=== PATIENT | female | born 1990 | race Caucasian/White ===

== ENCOUNTER 2017-05-24 17:35 | Emergency (ER) | payer BC ==
[~2017-05-24] VITALS: Ht 165.1 cm; Wt 77.1 kg
--- NOTE | ~2017-05-24 | CT4 ---
[facility] A Service of [facility] RADIOLOGY TEXT RESULTS PATIENT: ALEXIA MONTES LOCATION: SED : [birth year] UNIT #: [id number] AGE: [address]: RADHA MARRERO PA-C SEX: F ORDER DR: [id number] [address] [id number] MR#: [id number] Acc #: [id number] NAME: ALEXIA MONTES. : 1990 SEX: F STUDY DATE/TIME: 05/24/2017 18:42 UNIT: SED ROOM: STUDY DESCRIPTION: CT Abd and Pelv Wo Cont Attending Physician: Radha Marrero Pa-C Ordering Physician: Radha Marrero Pa-C Primary Care Physician: Tony Arenas M.D. MEDICAL IMAGING REPORT This report is preliminary unless electronic signature is present. EXAM CT abdomen and pelvis, noncontrast, kidney stone protocol, 05/24/2017 HISTORY 26-year-old female in the ED complaining of 2-week history of flank pain. Nausea. History of kidney stones. TECHNIQUE CT examination of the abdomen and pelvis without oral or IV contrast using kidney stone protocol. This CT examination was performed with one or more of the following radiation dose reduction techniques: automatic exposure control, adjustment of mA and/or kV according to patient size, and iterative reconstruction. FINDINGS ABDOMEN: 2 mm nonobstructing calculus in the lower pole left kidney is unchanged since 01/27/2015. Both kidneys, both ureters and the urinary bladder are otherwise negative. No evidence of urinary obstruction. Cholecystectomy. No bile duct dilatation. Liver, pancreas and spleen are normal in size and appearance without contrast. Small bowel and colon are normal in caliber and appearance, as imaged. Normal appendix. PELVIS: Uterus, ovaries, urinary bladder and rectum are within normal limits. No inguinal hernia. Limited lung base images show no active disease in the lower chest. IMPRESSION 1. No acute abnormality within the abdomen or pelvis. 2. 2 mm nonobstructing calculus in the lower pole left kidney, unchanged [facility] A Service of [facility] RADIOLOGY TEXT RESULTS PATIENT: ALEXIA MONTES LOCATION: [place] : [birth year] UNIT #: [id number] AGE: [address]: RADHA MARRERO PA-C SEX: F ORDER DR: since 01/27/2015. No evidence of urinary obstruction. 3. Cholecystectomy. 4. Normal appendix. Dictated by... Aneudy Singh M.D. THIS IS AN ELECTRONICALLY VERIFIED REPORT Aneudy Singh M.D. at 05/25/2017 9:47 AM JORGE/zuleima TD: 05/25/2017 06:04 JOB #: [id number] MEDICAL IMAGING REPORT Page 1 of 1
[~2017-05-24 17:35] MED LIST: BENADRYL25 M1 PO; BENADRYL25 M3; PAXIL40 MG PO; PREDNISONE PO; TAGAMET300 M1 PO
[2017-05-24 18:14] LABS: URINE SOURCE CLEAN CATCH
[2017-05-24 18:19] LABS: URINE APPEARANCE CLEAR; URINE BILIRUBIN NEG (NEG); URINE BLOOD 1+ (NEG); URINE COLOR YELLOW; URINE GLUCOSE NEG (NORM); URINE KETONE NEG (NEG); URINE LEUKOCYTE ESTERASE NEG (NEG); URINE NITRATE NEG (NEG); URINE PROTEIN NEG (NEG); URINE SPECIFIC GRAVITY <=1.005 (1.003-1.035); URINE UROBILINOGEN 0.2 MG/DL (NORM)
[2017-05-24 18:20] LABS: MICRO INDICATED? YES
[2017-05-24 18:31] LABS: CULTURE INDICATED? YES; URINE BACTERIA 1+ (NEG); URINE SQUAMOUS EPITHELIAL CELL OCCAS /[HPF]; URINE WBC 0-2 /[HPF] (0-5)
== END 2017-05-24 20:17 | disposition home or self-care (01) ==
LOC: SED 17:35
PROVIDERS: Physician Assistant
DX: N39.0 Urinary tract infection, site not specified (principal); F32.9 Major depressive disorder, single episode, unspecified; Z90.49 Acquired absence of other specified parts of digestive tract; F17.210 Nicotine dependence, cigarettes, uncomplicated; Z98.51 Tubal ligation status; Z88.2 Allergy status to sulfonamides
CPT/HCPCS: 74176; 81003; 84703; 87086; 99284